=== PATIENT | male | born 1965 | race Caucasian/White ===

== ENCOUNTER 2018-06-20 08:54 | Emergency (ER) | payer OTHER ==
[~2018-06-20] VITALS: Ht 182.9 cm; Wt 97.5 kg
[~2018-06-20 08:54] MED LIST: CALCIUM600 M2 PO; CYCLOBENZAPRINE10 M1 PO; DEXILANT60 M1 PO; FLAX SEED OIL1000 M2 PO; FLUOXETINE HCL20 M2 PO; GLUCOSAMINE1000 MG PO; HYDROXYZINE HCL25 M2 PO; LORAZEPAM1 M1 PO; LOTEMAX5 ML OPH; NAPROSYN500 M1 PO; VITAMIN D2000 UNIT PO
[2018-06-20 08:58] VITALS: BP 141/84
--- NOTE | 2018-06-20 09:32 | ED NECK/BACK PAIN COMPLAINT ---
History of Present Illness General Chief Complaint: Neck/Upper Back Pain/Injury Stated Complaint: NECK PAIN/CHRONIC Source: patient Exam Limitations: no limitations Vital Signs & Intake/Output Vital Signs & Intake/Output Vital Signs Date Time Temp Pulse Resp B/P B/P Pulse O2 O2 Flow FiO2 Mean Ox Delivery Rate 06/20 0858 96.4 77 22 141/84 100 Room Air Allergies Coded Allergies: No Known Allergies (06/20/18) Reconcile Medications Calcium Carbonate (Calcium) (Unknown Strength) TABLET (Unknown Dose) PO DAILY SUPPLEMENT (Reported) Cholecalciferol (Vitamin D3) (Vitamin D) (Unknown Strength) CAPSULE (Unknown Dose) PO DAILY SUPPLEMENT (Reported) Cyclobenzaprine HCl 10 MG TABLET 1 TAB PO Q8P PAIN OR SPASM Dexlansoprazole (Dexilant) 60 MG CAP.BP 1 CAP PO EOD GI (Reported) Flaxseed Oil (Flax Seed Oil) (Unknown Strength) CAPSULE 2 CAP PO DAILY SUPPLEMENT (Reported) Fluoxetine HCl 20 MG CAPSULE 2 CAP PO DAILY MENTAL HEALTH (Reported) Glucosamine Sulfate 2KCL (Glucosamine) (Unknown Strength) TABLET (Unknown Dose ) PO DAILY SUPPLEMENT (Reported) Hydroxyzine Hydrochloride (Atarax) 25 MG TABLET 1 TAB PO QPM SLEEP/ALLERGIES (Reported) Lorazepam 1 MG TABLET 2 TAB PO QPM SLEEP (Reported) Lorazepam 1 MG TABLET 1 TAB PO QAM ANXIETY (Reported) Loteprednol Etabonate (Lotemax) 5 ML DROPS.SUSP 1 GTT OPH EOD BOTH EYES ( Reported) Naproxen (Naprosyn) 500 MG TABLET 1 TAB PO BID PAIN Triage Note: PT TO ED C/O CONTINUED CHRONIC NECK PAIN. PT GOES TO PAIN MANAGEMENT HERE, STATES PAIN IS WORSE. PT SAW DR RAE YESTERDAY AND WAS GIVEN RX FOR TRAMADOL, STATES TRAMADOL IS HELPING. HE NEEDS TO TAKE THE MEDS MORE THAN EVERY 8 HOURS PRESCRIBED. INSTRUCTED TO COME TO ED BY DR RAE. Triage Nurses Notes Reviewed? yes Onset: Abrupt Duration: ACUTE ON CHRONIC ISSUE Timing: recent history HPI: 53-year-old male comes into the emergency room for further evaluation of acute exacerbation of chronic neck pain. Patient reports that he has disc herniations in his neck. He has chronic pain issues with neck ad the right side of his arm. He had previous weakness in his right arm many years ago from initial disc herniations and those symptoms have been long resolved and his strength has been back. He has an appointment with a neurosurgeon tomorrow and is in pain management although he reports that he is on no narcotics. His doctor just prescribed tramadol yesterday. He currently finished a Medrol Dosepak and is now on another course of prednisone. He's had increased pain recently and his neck and right arm. He denies any new falls or trauma. He denies any other associated symptoms. He comes in for further evaluation. (Bhargav Vo) Past History Travel History Traveled to [place] past 21 day No Medical History Any Pertinent Medical History? see below for history Neurological: NONE EENT: NONE Cardiovascular: NONE Respiratory: NONE Gastrointestinal: NONE Hepatic: NONE Renal: NONE Musculoskeletal: CHRONIC NECK PAIN Psychiatric: anxiety, PROZAC Endocrine: NONE Blood Disorders: NONE Cancer(s): NONE Surgical History Surgical History: non-contributory Psychosocial History What is your primary language Luxembourgish Tobacco Use: Current Not Daily Daily Tobacco Use Amount/Type: =< 4 Cigarettes daily ETOH Use: denies use Illicit Drug Use: denies illicit drug use Family History Hx Contributory? No (Bhargav Vo) Review of Systems Review of Systems Constitutional: Reports: no symptoms. Eyes: Reports: no symptoms. Ears, Nose, Throat, Mouth: Reports: no symptoms. Respiratory: Reports: no symptoms. Cardiovascular: Reports: no symptoms. Gastrointestinal/Abdominal: Reports: no symptoms. Musculoskeletal: Reports: see HPI. Skin: Reports: no symptoms. Neurological/Psychological: Reports: no symptoms. All Other Systems: Reviewed and Negative (Bhargav Vo) Physical Exam Physical Exam General Appearance: well developed/nourished, mild distress Head: atraumatic Eyes: Bilateral: normal appearance. Ears, Nose, Throat, Mouth: hearing grossly normal, moist mucous membrane Neck: normal inspection, supple, limited range of motion, paraspinous muscle tender Respiratory: no respiratory distress Back: normal inspection Extremities: normal range of motion Neurologic/Psych: awake, alert, oriented x 3, normal mood/affect Skin: intact, normal color, warm/dry Comments: 5 out of 5 strength upper extremities, 5 out of 5 strength upper trauma's, gross sensation intact, full range of motion of right shoulder, Core Measures CVA/TIA Diagnosis: No (Bhargav Vo) Progress Differential Diagnosis: C spine injury, herniated disc, myofascial strain Plan of Care: Orders Procedure Date/time Status XRY-CERV SPINE 4 OR 5 VIEWS 06/20 932 Active Current Medications Sig/Nida Start time Last Medication Dose Stop Time Status Admin Oxycodone/ 2 TAB ONCE ONE 06/20 945 UNVr Acetaminophen 06/20 946 (Percocet) Diagnostic Imaging: Viewed by Me: Radiology Read. Discussed w/RAD: Radiology Read. Radiology Impression: PATIENT: MERY DOMINGUEZ PRESENT AGE: 53 PATIENT ACCOUNT NO: [id number] : 64 LOCATION: [facility] ORDERING PHYSICIAN: Bhargav BUSTAMANTE SERVICE DATE: 06/20/18 EXAM TYPE: RAD - XRY-CERV SPINE 4 OR 5 VIEWS EXAMINATION: XR CERVICAL SPINE CLINICAL INFORMATION: Neck pain. Chronic. COMPARISON: C-spine films dated 04/19/2016. TECHNIQUE: 6 views of the cervical spine. FINDINGS: There is a reversal of the normal cervical lordosis with focal kyphosis seen at the C5-6 level, slightly progressed when compared to the prior exam. There is associated moderate degenerative disc disease at the C5-6 and C6-7 levels with disc space narrowing and vertebral endplate spurring, similar to the previous study. Remainder of the disc space height well-maintained and no significant vertebral spondylosis seen in the upper cervical spine. The neural foramina bilaterally are widely patent. There is moderate facet arthropathy seen in the mid and lower cervical spine, similar to prior exam. No acute fracture or dislocation is seen. Prevertebral soft tissues are normal in thickness. Craniocervical junction and atlantoaxial articulations are intact. Osteopenia is suggested. IMPRESSION: 1. No acute fracture or dislocation. 2. Progressive cervical kyphosis, centered at the C5-6 level. 3. No significant change in moderate degenerative disc disease at C5-6 and C6-7. 4. No significant change in mid and lower cervical facet arthropathy. DICTATED BY: Vaishali Hutchinson MD DATE/TIME DICTATED:06/20/181026 WELLNESS PROGRAM MANAGER:TRAVIS DATE/TIME TRANSCRIBED:06/20/181026 CONFIDENTIAL, DO NOT COPY WITHOUT APPROPRIATE AUTHORIZATION. <Electronically signed in Other Vendor System> SIGNED BY: Vaishali Hutchinson MD 06/20/18 1037 (Bhargav Vo) Departure Departure Disposition: HOME OR SELF CARE Condition: Stable Clinical Impression Primary Impression: Chronic neck pain Referrals: Maxi YOUNGBLOOD,Benigno Rodriguez. (PCP/Family) Additional Instructions: follow-up tomorrow as already scheduled. Return if any other concerns worsening symptoms. Please go over all results of today's visit with your primary care doctor. Contact your primary care doctor to let them know you were here in the emergency room. There may be nonspecific findings which may not be related to your visit today here in the emergency room but may require further evaluation and chronic monitoring by your primary care doctor. If you had a laceration today the chance of foreign body always remains. You should follow-up with your primary care doctor for recheck in 3-5 days for a wound check. If you had an x-ray done there is a chance that a fracture could have been missed on initial read and you should follow-up with your primary care doctor for repeat x-rays if symptoms persist. If your blood pressure was elevated here in the emergency room please have rechecked by [facility] primary care doctor within the next 48. If you were prescribed a narcotic here in the emergency room or any type of controlled substances you're not allowed to drive while taking this medication or operate any type of heavy machinery. Narcotics can make you feel lightheaded dizziness nausea and can cause constipation. You may need to sampler pickup a stool softener. Thank you for choosing [facility] emergency room. Please return to the emergency room immediately if you have any other concerns worsening of symptoms. Departure Forms: Customer Survey General Discharge Information Comments 06/20/2018 10:49:28 AM Patient clinically looks well. Patient is in no apparent distress. Nontoxic- appearing. Pain is most consistent with chronic neck pain. No motor deficits. He has an appointment with neurosurgery and pain management tomorrow. Return if any other concerns. Understands and agrees with plan of care. (Bhargav Vo) PA/CHIEF PSYCHOLOGIST Co-Sign Statement Statement: ED Attending supervision documentation- [] I saw and evaluated the patient. I have also reviewed all the pertinent lab results and diagnostic results. I agree with the findings and the plan of care as documented in the PA's/CHIEF PSYCHOLOGIST's documentation. [X] I have reviewed the ED Record and agree with the PA's/CHIEF PSYCHOLOGIST's documentation. [] Additions or exceptions (if any) to the PAs/CHIEF PSYCHOLOGIST's note and plan are summarized below: [] (Kody YOUNGBLOOD,Albin Alonso)
--- NOTE | 2018-06-20 10:37 | RADIOLOGY REPORT ---
EXAMINATION: XR CERVICAL SPINE CLINICAL INFORMATION: Neck pain. Chronic. COMPARISON: C-spine films dated 04/19/2016. TECHNIQUE: 6 views of the cervical spine. FINDINGS: There is a reversal of the normal cervical lordosis with focal kyphosis seen at the C5-6 level, slightly progressed when compared to the prior exam. There is associated moderate degenerative disc disease at the C5-6 and C6-7 levels with disc space narrowing and vertebral endplate spurring, similar to the previous study. Remainder of the disc space height well-maintained and no significant vertebral spondylosis seen in the upper cervical spine. The neural foramina bilaterally are widely patent. There is moderate facet arthropathy seen in the mid and lower cervical spine, similar to prior exam. No acute fracture or dislocation is seen. Prevertebral soft tissues are normal in thickness. Craniocervical junction and atlantoaxial articulations are intact. Osteopenia is suggested. IMPRESSION: 1. No acute fracture or dislocation. 2. Progressive cervical kyphosis, centered at the C5-6 level. 3. No significant change in moderate degenerative disc disease at C5-6 and C6-7. 4. No significant change in mid and lower cervical facet arthropathy.
== END 2018-06-20 10:48 ==
LOC: ERH 08:54
DX: M54.2 Cervicalgia (principal); G89.29 Other chronic pain; F41.9 Anxiety disorder, unspecified; F17.210 Nicotine dependence, cigarettes, uncomplicated
CPT/HCPCS: 72050

== ENCOUNTER 2018-06-20 13:42 | Emergency (ER) | payer OTHER ==
[~2018-06-20] VITALS: Ht 182.9 cm; Wt 97.5 kg
[2018-06-20 13:51] VITALS: BP 134/88
--- NOTE | 2018-06-20 13:58 | ED GENERAL ADULT ---
History of Present Illness General Chief Complaint: General Adult Stated Complaint: RADIATING PAIN DOWN NECK, WAS SEEN THIS AM Source: patient Exam Limitations: no limitations Vital Signs & Intake/Output Vital Signs & Intake/Output Vital Signs Date Time Temp Pulse Resp B/P B/P Pulse O2 O2 Flow FiO2 Mean Ox Delivery Rate 06/20 1351 97.0 62 20 134/88 98 Room Air Allergies Coded Allergies: No Known Allergies (06/20/18) Reconcile Medications Calcium Carbonate (Calcium) (Unknown Strength) TABLET (Unknown Dose) PO DAILY SUPPLEMENT (Reported) Cholecalciferol (Vitamin D3) (Vitamin D) (Unknown Strength) CAPSULE (Unknown Dose) PO DAILY SUPPLEMENT (Reported) Cyclobenzaprine HCl 10 MG TABLET 1 TAB PO Q8P PAIN OR SPASM Dexlansoprazole (Dexilant) 60 MG CAP.BP 1 CAP PO EOD GI (Reported) Flaxseed Oil (Flax Seed Oil) (Unknown Strength) CAPSULE 2 CAP PO DAILY SUPPLEMENT (Reported) Fluoxetine HCl 20 MG CAPSULE 2 CAP PO DAILY MENTAL HEALTH (Reported) Glucosamine Sulfate 2KCL (Glucosamine) (Unknown Strength) TABLET (Unknown Dose ) PO DAILY SUPPLEMENT (Reported) Hydroxyzine Hydrochloride (Atarax) 25 MG TABLET 1 TAB PO QPM SLEEP/ALLERGIES (Reported) Lorazepam 1 MG TABLET 2 TAB PO QPM SLEEP (Reported) Lorazepam 1 MG TABLET 1 TAB PO QAM ANXIETY (Reported) Loteprednol Etabonate (Lotemax) 5 ML DROPS.SUSP 1 GTT OPH EOD BOTH EYES ( Reported) Naproxen (Naprosyn) 500 MG TABLET 1 TAB PO BID PAIN Triage Note: PT TO ED C/O CONTINUED NECK PAIN. PT SEEN FOR SAME THIS AM. Triage Nurses Notes Reviewed? yes Onset: Abrupt Duration: day(s):, constant Timing: recent history Injury Environment: home HPI: 53-year-old male that was seen here in our 2 ago comes into the emergency room with persistent right-sided neck pain. He also reports that he felt little bit dizzy. He reports that he did not eat food today or drink any water and feels dehydrated. The last time he drank was yesterday. When asked as to why he has not eaten or drank anything today he reports that he was here all morning and couldnt. He was on his way home being driven by a friend accompanying him when he started to feel dizzy so they turned around and came back to the ER. He denies any chest pain or shortness of breath or new symptoms. At the same pain he's been experiencing for days now. He has an appointment tomorrow with neurosurgeon at 1:00 in pain management doctor at 4 PM. (Bhargav Vo) Past History Travel History Traveled to [place] past 21 day No Medical History Any Pertinent Medical History? see below for history Neurological: NONE EENT: NONE Cardiovascular: NONE Respiratory: NONE Gastrointestinal: NONE Hepatic: NONE Renal: NONE Musculoskeletal: CHRONIC NECK PAIN Psychiatric: anxiety, PROZAC Endocrine: NONE Blood Disorders: NONE Cancer(s): NONE Surgical History Surgical History: non-contributory Psychosocial History What is your primary language Occitan Tobacco Use: Current Not Daily Daily Tobacco Use Amount/Type: =< 4 Cigarettes daily ETOH Use: denies use Illicit Drug Use: denies illicit drug use Family History Hx Contributory? No (Bhargav Vo) Review of Systems Review of Systems Constitutional: Reports: no symptoms. EENTM: Reports: no symptoms. Respiratory: Reports: no symptoms. Cardiovascular: Reports: no symptoms. GI: Reports: no symptoms. Genitourinary: Reports: no symptoms. Musculoskeletal: Reports: see HPI. Skin: Reports: no symptoms. Neurological/Psychological: Reports: no symptoms. Hematologic/Endocrine: Reports: no symptoms. Immunologic/Allergic: Reports: no symptoms. All Other Systems: Reviewed and Negative (Bhargav Vo) Physical Exam Physical Exam General Appearance: well developed/nourished, no apparent distress, alert, awake Head: atraumatic, normal appearance Eyes: Bilateral: normal appearance, EOMI. Ears, Nose, Throat: normal ENT inspection, hearing grossly normal Neck: normal inspection Respiratory: no respiratory distress Neurologic/Psych: awake, alert, oriented x 3 Skin: intact, normal color Core Measures ACS in differential dx? No CVA/TIA Diagnosis: No Sepsis Present: No Sepsis Focused Exam Completed? No (Bhargav Vo) Progress Differential Diagnoses I considered the following diagnoses in my evaluation of the patient: Disc herniation, degenerative disc disease, arthritis, drug-seeking, Plan of Care: Orders Procedure Date/time Status EKG 06/20 1356 Active Initial ED EKG: normal sinus rhythm, rate (59), Borderline T-wave abnormalities (Bhargav Vo) Departure Departure Disposition: HOME OR SELF CARE Condition: Stable Clinical Impression Primary Impression: Chronic neck pain Secondary Impressions: Cervical radiculopathy Referrals: Maxi YOUNGBLOOD,Benigno Reddy (PCP/Family) Additional Instructions: Continue to take the tramadol at home 2 tabs every 4-6 hours as needed for pain. Follow-up with doctors tomorrow as already scheduled. Return if any other concerns worsening symptoms. Please go over all results of today's visit with your primary care doctor. Contact your primary care doctor to let them know you were here in the emergency room. There may be nonspecific findings which may not be related to your visit today here in the emergency room but may require further evaluation and chronic monitoring by your primary care doctor. If you had a laceration today the chance of foreign body always remains. You should follow-up with your primary care doctor for recheck in 3-5 days for a wound check. If you had an x-ray done there is a chance that a fracture could have been missed on initial read and you should follow-up with your primary care doctor for repeat x-rays if symptoms persist. If your blood pressure was elevated here in the emergency room please have rechecked by [facility] primary care doctor within the next 48. If you were prescribed a narcotic here in the emergency room or any type of controlled substances you're not allowed to drive while taking this medication or operate any type of heavy machinery. Narcotics can make you feel lightheaded dizziness nausea and can cause constipation. You may need to draft roller picker a stool softener. Thank you for choosing [facility] emergency room. Please return to the emergency room immediately if you have any other concerns worsening of symptoms. Departure Forms: Customer Survey General Discharge Information Comments 06/20/2018 4:12:30 PM Patient was just seen and examined an hour or so ago. There is no acute findings at that time. He had no motor deficits. This has been an acute on chronic issue. He has an appointment tomorrow with neurosurgery and pain management. He has no complaints of chest pain shortness of breath. It is clearly a musculoskeletal issue. Case is discussed with Dr. Gates. He feels a little bit better but reports she still is having pain. Patient was told to use tramadol home. (Bhargav Vo) PA/SENIOR MEDIA BUYER Co-Sign Statement Statement: ED Attending supervision documentation- [] I saw and evaluated the patient. I have also reviewed all the pertinent lab results and diagnostic results. I agree with the findings and the plan of care as documented in the PA's/SENIOR MEDIA BUYER's documentation. [X] I have reviewed the ED Record and agree with the PA's/SENIOR MEDIA BUYER's documentation. [] Additions or exceptions (if any) to the PAs/SENIOR MEDIA BUYER's note and plan are summarized below: [] (Kody YOUNGBLOOD,Albin Alonso) Critical Care Note Critical Care Note Critical Care Time: non-applicable (Bhargav Vo)
== END 2018-06-20 16:09 ==
LOC: ERH 13:42
DX: M54.12 Radiculopathy, cervical region (principal); M54.2 Cervicalgia; G89.29 Other chronic pain; F41.9 Anxiety disorder, unspecified; F17.210 Nicotine dependence, cigarettes, uncomplicated
CPT/HCPCS: 93005; 93010; 96372; J1885

== ENCOUNTER 2018-06-26 09:31 | Inpatient (IN) | payer OTHER ==
[~2018-06-26] VITALS: Ht 182.9 cm; Wt 97.5 kg
[2018-06-26 11:22] LABS: ABSOLUTE BASOPHIL COUNT 0 /CUMM (0.0-0.2); ABSOLUTE EOSINOPHIL COUNT 0 /CUMM (0.0-0.7); ABSOLUTE GRANULOCYTE CT 10.1 /CUMM (1.4-6.5); ABSOLUTE LYMPH COUNT 1.7 /CUMM (1.2-3.4); ABSOLUTE MONOCYTE COUNT 0.7 /CUMM (0.10-0.60); BASOPHIL % 0.3 % (0.0-2.0); EOSINOPHIL % 0 % (0-5); GRANULOCYTE % 80.9 % (42.2-75.2); HEMATOCRIT 42.4 % (42-52); MEAN CORPUSCULAR HGB 30.3 PG (27.0-31.0); MEAN CORPUSCULAR VOLUME 89.3 FL (80.0-94.0); MEAN PLATELET VOLUME 7.9 FL (7.4-10.4); PLATELET COUNT 333 /CUMM (130-400); RBC DISTRIBUTION WIDTH 14.4 % (11.5-14.5); RED BLOOD CELL CT 4.75 /CUMM (4.70-6.10); WHITE BLOOD CELL COUNT 12.5 /CUMM (4.8-10.8)
--- NOTE | 2018-06-26 11:29 | ED GENERAL ADULT ---
History of Present Illness General Chief Complaint: General Adult Stated Complaint: SIB MD ESPINOSA FOR "ADMISSION PRE SURGERY [facility]" Source: patient Exam Limitations: no limitations Vital Signs & Intake/Output Vital Signs & Intake/Output Vital Signs Date Time Temp Pulse Resp B/P B/P Pulse O2 O2 Flow FiO2 Mean Ox Delivery Rate 06/26 1106 Room Air 06/26 0943 97.4 81 15 141/94 98 Room Air Room Air Allergies Coded Allergies: No Known Allergies (06/20/18) Reconcile Medications Calcium Carbonate (Calcium) (Unknown Strength) TABLET (Unknown Dose) PO DAILY SUPPLEMENT (Reported) Cholecalciferol (Vitamin D3) (Vitamin D) (Unknown Strength) CAPSULE (Unknown Dose) PO DAILY SUPPLEMENT (Reported) Cyclobenzaprine HCl 10 MG TABLET 1 TAB PO Q8P PAIN OR SPASM Dexlansoprazole (Dexilant) 60 MG CAP. 1 CAP PO EOD GI (Reported) Flaxseed Oil (Flax Seed Oil) (Unknown Strength) CAPSULE 2 CAP PO DAILY SUPPLEMENT (Reported) Fluoxetine HCl 20 MG CAPSULE 2 CAP PO DAILY MENTAL HEALTH (Reported) Glucosamine Sulfate 2KCL (Glucosamine) (Unknown Strength) TABLET (Unknown Dose ) PO DAILY SUPPLEMENT (Reported) Hydroxyzine Hydrochloride (Atarax) 25 MG TABLET 1 TAB PO QPM SLEEP/ALLERGIES (Reported) Lorazepam 1 MG TABLET 2 TAB PO QPM SLEEP (Reported) Lorazepam 1 MG TABLET 1 TAB PO QAM ANXIETY (Reported) Loteprednol Etabonate (Lotemax) 5 ML DROPS.SUSP 1 GTT OPH EOD BOTH EYES ( Reported) Naproxen (Naprosyn) 500 MG TABLET 1 TAB PO BID PAIN Triage Note: PT SENT TO ED BY DR. ESPINOSA FOR ADMISSION FOR SURGERY TOMORROW FOR NECK DISCECTOMY. 02/14 PAIN CURRENTLY. R ARM PAIN WELL R/T NECK INJURY. Triage Nurses Notes Reviewed? yes Onset: Gradual Duration: week(s): Timing: recent history Severity: moderate HPI: 53YO MALE presents to ED sent in by his surgeon, Dr. Garcia, for pre-op evaluation and admission. Patient states he is scheduled for cervical fusion tomorrow. Patient states that they attempted to directly admit him however there was not enough room so he came here first. Patient has been taking pain medication and steroids for his symptoms. He reports long-standing history of neck pain without recent injury. Pain radiates down right arm and is associated with burning and intermittent paresthesias. Patient reports associated weakness to right arm. Past History Travel History Traveled to [place] past 21 day No Medical History Any Pertinent Medical History? see below for history Neurological: NONE EENT: NONE Cardiovascular: NONE Respiratory: NONE Gastrointestinal: NONE Hepatic: NONE Renal: NONE Musculoskeletal: CHRONIC NECK PAIN Psychiatric: anxiety, PROZAC Endocrine: NONE Blood Disorders: NONE Cancer(s): NONE Surgical History Surgical History: non-contributory Psychosocial History What is your primary language Japanese Tobacco Use: Never used ETOH Use: denies use Illicit Drug Use: denies illicit drug use Family History Hx Contributory? No Review of Systems Review of Systems Constitutional: Reports: no symptoms. EENTM: Reports: no symptoms. Respiratory: Reports: no symptoms. Cardiovascular: Reports: no symptoms. GI: Reports: no symptoms. Genitourinary: Reports: no symptoms. Musculoskeletal: Reports: see HPI. Skin: Reports: no symptoms. Neurological/Psychological: Reports: see HPI. Hematologic/Endocrine: Reports: no symptoms. Immunologic/Allergic: Reports: no symptoms. All Other Systems: Reviewed and Negative Physical Exam Physical Exam General Appearance: well developed/nourished, no apparent distress, alert, awake Head: atraumatic, normal appearance Eyes: Bilateral: normal appearance. Ears, Nose, Throat: hearing grossly normal Neck: normal inspection, supple, full range of motion, no midline tenderness Respiratory: normal breath sounds, no respiratory distress, lungs clear Cardiovascular: regular rate/rhythm Gastrointestinal: normal bowel sounds, soft, non-tender Back: normal inspection, normal range of motion Extremities: normal inspection Neurologic/Psych: awake, alert, oriented x 3, strength 5/5 equal bilateral upper extremities Skin: intact, normal color, warm/dry Core Measures ACS in differential dx? No CVA/TIA Diagnosis: No Sepsis Present: No Sepsis Focused Exam Completed? No Progress Differential Diagnoses I considered the following diagnoses in my evaluation of the patient: [ degenerative disc disease, cervical radiculopathy, pre-operative clearance, anemia] Plan of Care: Orders Procedure Date/time Status Nothing by Mouth 06/27 B Active Regular Diet 06/26 L Complete Nothing by Mouth 06/26 D Active POTASSIUM 06/26 1800 Active Patient Data 06/26 1302 Active Misc Message 06/26 1240 Active ED Holding Orders 06/26 1240 Active Admit to inpatient 06/26 1240 Active Vital Signs 06/26 1240 Active Code Status 06/26 1240 Active XRY-CHEST XRAY, TWO VIEWS 06/26 1225 Active EKG 06/26 1114 Active URINALYSIS 06/26 0955 Complete TROPONIN LEVEL 06/26 0955 Complete PARTIAL THROMBOPLASTIN TIME 06/26 0955 Complete PROTHROMBIN TIME 06/26 09 Complete COMPREHENSIVE METABOLIC PANEL 06/26 955 Complete CBC WITHOUT DIFFERENTIAL 06/26 955 Complete TYPE & SCREEN (NOT X-MATCH) 06/26 955 Complete VTE Mechanical Prophylaxis 06/26 UNK Active Vital Signs 06/26 UNK Active Intake & Output 06/26 UNK Active Current Medications Sig/Nida Start time Last Medication Dose Stop Time Status Admin Fluoxetine HCl 40 MG DAILY 06/27 09 AC (Prozac) Lorazepam 1 MG DAILY 06/27 09 UNVr (Ativan) Pantoprazole Sodium 40 MG DAILY 06/27 09 UNVr (Protonix) Dexamethasone 4 MG Q6 06/26 1800 AC (Decadron) Acetaminophen 1,000 MG Q6P PRN 06/26 1315 AC (Ofirmev) N/A 1 UNIT (No Carrier) Cyclobenzaprine HCl 10 MG Q8P PRN 06/26 1315 AC (Flexeril 10MG Tab) Dextrose/Sodium 1,000 ML Q8H 06/26 1315 AC Chloride (D5-Normal Saline) Hydroxyzine HCl 25 MG AT BEDTIME NEED.. 06/26 1315 AC (Atarax) Lorazepam 2 MG .[AT BETIME] PRN 06/26 1315 UNVr (Ativan) Morphine Sulfate 2 MG Q4-6 PRN PRN 06/26 1315 UNVr (MORPHINE SULFATE) Laboratory Tests 06/26/18 1109: Urine Color YEL, Urine Clarity CLEAR, Urine pH 7.0, Ur Specific [place] 1.015, Urine Protein NEG, Urine Ketones NEG, Urine Nitrite NEG, Urine Bilirubin NEG, Urine Urobilinogen 0.2, Ur Leukocyte Esterase NEG, Ur Microscopic EXAM NOT REQUIRED, Urine Hemoglobin NEG, Urine Glucose NEG 06/26/18 1108: Anion Gap 5, Estimated GFR > 60, BUN/Creatinine Ratio 17.3, Glucose 133 H, Calcium 9.6, Total Bilirubin 0.2, AST 30, ALT 40, Alkaline Phosphatase 78, Troponin I < 0.01, Total Protein 8.6 H, Albumin 4.5, Globulin 4.1, Albumin/ Globulin Ratio 1.1, PT 10.7, INR 0.98, APTT 26, CBC w Diff NO MAN DIFF REQ, RBC 4.75, MCV 89.3, MCH 30.3, MCHC 34.0, RDW 14.4, MPV 7.9, Gran % 80.9 H, Lymphocytes % 13.5 L, Monocytes % 5.3, Eosinophils % 0, Basophils % 0.3, Absolute Granulocytes 10.1 H, Absolute Lymphocytes 1.7, Absolute Monocytes 0.7 H, Absolute Eosinophils 0, Absolute Basophils [address] Garcia regarding this patient. He recommends Decadron 6 mg now and then Decadron 4 mg every 6 hours. Also Nexium. She recommends spirometer and MRSA swab. She agrees with treating hyperkalemia with IV fluids and rechecking electrolytes lateral tonight. She requested I call the surgical PA to things ready for this patient's admission to surgical unit. Spoke with surgical PA Erica regarding this patient. Spoke with Dr. Narayanan who agrees with plan of care. Initial ED EKG: sinus rhythm @63bpm, nonspecific ST changes Prior EKG: unchanged (06/20/18) Departure Departure Disposition: STILL A PATIENT Condition: Stable Clinical Impression Primary Impression: Degenerative disc disease Qualifiers: Spinal region: unspecified cervical region Qualified Code: M50.30 - Other cervical disc degeneration, unspecified cervical region Secondary Impressions: Hyperkalemia Referrals: Maxi YOUNGBLOOD,Benigno Reddy (PCP/Family) Departure Forms: Customer Survey General Discharge Information Admission Note Spoke With: Karen Garcia MD Documentation of Exam: Documentation of any treatments & extenuating circumstances including Concerns Regarding Discharge (functional status, medication knowledge or non-compliance, living conditions, etc.) that warrant an admission rather than observation: [ Patient requires cervical fusion tomorrow with neurosurgeon, pre-op clearance, IV fluids to treat hyperkalemia with repeat electrolytes] Critical Care Note Critical Care Note Critical Care Time: non-applicable
[2018-06-26 11:33] LABS: PT 10.7 SEC (9.4-12.5); PTT 26 SEC (25-37)
--- NOTE | 2018-06-26 13:57 | History & Physical Pre-Op ---
General Information and HPI MD Statement: I have seen and personally examined MERY DOMINGUEZ and documented this H&P. The patient is a 53 year old M who presented with a patient stated chief complaint of [NECK PAIN WITH RIGHT SIDED RADICULOPATHY]. Source of Information: patient Exam Limitations: no limitations History of Present Illness: This 53-year-old male presents as a direct admission for progressive pain and weakness in his right arm and neck over the last few days. He admits to a history of chronic neck pain, with this current acute exacerbation only minimally responsive to a medrol dose pack followed by a subsequent prednisone taper. He reports a history of disc herniations in his neck, since 2010, but he has noticed right arm parethesias over the last 2 weeks with an acute worsening of his right arm weakness since yesterday. He denies any recent trauma or injury. He denies any other associated symptoms. He was instructed by for admission today, with plans for surgery tomorrow. Allergies/Medications Allergies: Coded Allergies: No Known Allergies (06/20/18) Home Med list Calcium Carbonate (Calcium) (Unknown Strength) TABLET (Unknown Dose) PO DAILY SUPPLEMENT (Reported) Cholecalciferol (Vitamin D3) (Vitamin D) (Unknown Strength) CAPSULE (Unknown Dose) PO DAILY SUPPLEMENT (Reported) Cyclobenzaprine HCl 10 MG TABLET 1 TAB PO Q8P PAIN OR SPASM Dexlansoprazole (Dexilant) 60 MG CAP.BP 1 CAP PO EOD GI (Reported) Flaxseed Oil (Flax Seed Oil) (Unknown Strength) CAPSULE 2 CAP PO DAILY SUPPLEMENT (Reported) Fluoxetine HCl 20 MG CAPSULE 2 CAP PO DAILY MENTAL HEALTH (Reported) Glucosamine Sulfate 2KCL (Glucosamine) (Unknown Strength) TABLET (Unknown Dose ) PO DAILY SUPPLEMENT (Reported) Hydroxyzine Hydrochloride (Atarax) 25 MG TABLET 1 TAB PO QPM SLEEP/ALLERGIES (Reported) Lorazepam 1 MG TABLET 2 TAB PO QPM SLEEP (Reported) Lorazepam 1 MG TABLET 1 TAB PO QAM ANXIETY (Reported) Loteprednol Etabonate (Lotemax) 5 ML DROPS.SUSP 1 GTT OPH EOD BOTH EYES ( Reported) Naproxen (Naprosyn) 500 MG TABLET 1 TAB PO BID PAIN Past History Medical History Neurological: NONE EENT: NONE Cardiovascular: NONE Respiratory: NONE Gastrointestinal: NONE Hepatic: NONE Renal: NONE Musculoskeletal: CHRONIC NECK PAIN Psychiatric: anxiety, PROZAC Endocrine: NONE Blood Disorders: NONE Cancer(s): NONE Surgical History Pertinent Surgical History: hernia repair-inguinal, tonsillectomy Past Family/Social History Family History Relations & Conditions if any FATHER, . Chronic renal disease Tuberculosis MOTHER, . FHx: lymphoma Psychosocial History Where Do You Live? Home Smoking Status: Former Smoker ETOH Use: denies use Illicit Drug Use: denies illicit drug use Employment History Employment: Employed Profession/Employer: multimedia project manager, banker Review of Systems Review of Systems: admits: acute on chronic neck pain, posterior. right arm paresthesias, right arm weakness denies: dizziness, shortness of breath, chest pains, dysuria, fevers/chills/ sweats Exam & Diagnostic Data Last 24 Hrs of Vital Signs/I&O Vital Signs Date Time Temp Pulse Resp B/P B/P Pulse O2 O2 Flow FiO2 Mean Ox Delivery Rate 06/26 1106 Room Air 06/26 0943 97.4 81 15 141/94 98 Room Air Room Air Intake & Output 06/26 1600 06/26 0800 06/26 0000 Intake Total 0 Output Total Balance 0 Intake, Oral 0 Patient 215 lb Weight Weight Reported by Patient Measurement Method Physical Exam: General - alert & oriented x 3. uncomfortable. no acute distress. Skin - warm, dry, and smooth. no rashes noted. Lungs - clear bilaterally. no w/r/r. Cardiac - s1s2. reg. Abdomen - soft. nontender. Extremities - warm bilaterally. no c/c/e. calves soft and nontender b/l. Neuro - speech smooth and coordinated. some numbness appreciated on the medial side of his right index finger, but otherwise equal. 5/5 retail cashier associate strength. 4/5 right sided triceps strength vs 5/5 left sided strength. radial pulses 2+ bilaterally. Last 24 Hrs of Labs/Trevin: Laboratory Tests 06/26/18 1109: Urine Color YEL, Urine Clarity CLEAR, Urine pH 7.0, Ur Specific [place] 1.015, Urine Protein NEG, Urine Ketones NEG, Urine Nitrite NEG, Urine Bilirubin NEG, Urine Urobilinogen 0.2, Ur Leukocyte Esterase NEG, Ur Microscopic EXAM NOT REQUIRED, Urine Hemoglobin NEG, Urine Glucose NEG 06/26/18 1108: Anion Gap 5, Estimated GFR > 60, BUN/Creatinine Ratio 17.3, Glucose 133 H, Calcium 9.6, Total Bilirubin 0.2, AST 30, ALT 40, Alkaline Phosphatase 78, Troponin I < 0.01, Total Protein 8.6 H, Albumin 4.5, Globulin 4.1, Albumin/ Globulin Ratio 1.1, PT 10.7, INR 0.98, APTT 26, CBC w Diff NO MAN DIFF REQ, RBC 4.75, MCV 89.3, MCH 30.3, MCHC 34.0, RDW 14.4, MPV 7.9, Gran % 80.9 H, Lymphocytes % 13.5 L, Monocytes % 5.3, Eosinophils % 0, Basophils % 0.3, Absolute Granulocytes 10.1 H, Absolute Lymphocytes 1.7, Absolute Monocytes 0.7 H, Absolute Eosinophils 0, Absolute Basophils 0 Diagnostic Data EKG Results reviewed, normal sinus rhythm, no acute changes CXR Results EXAMINATION: XR CHEST CLINICAL INFORMATION: Evaluate for cardiopulmonary pathology preop. COMPARISON: Chest CT September 2016. Chest x-ray September 2016. TECHNIQUE: 2 views of the chest were obtained. FINDINGS: Minimal blunting of the right costophrenic angle compatible pleural thickening or small effusion. Lungs otherwise clear. Chronic silhouette mediastinum pulmonary vascularity normal. Incidental note made of radiopaque tubing overlying the left hemithorax Bone and soft tissues unremarkable. IMPRESSION: No acute disease. Blunting of the right costophrenic angle compatible with pleural thickening or small effusion DICTATED BY: Pb Degroot MD DATE/TIME DICTATED:06/26/181350 INSURANCE ADMINISTRATIVE ASSISTANT:TRAVIS DATE/TIME TRANSCRIBED:06/26/181350 Other Results EXAMINATION: XR CERVICAL SPINE CLINICAL INFORMATION: Cervical spondylosis COMPARISON: 06/20/2018 TECHNIQUE: 4 views cervical spine including flexion and extension FINDINGS: Once again noted is reversal of the normal cervical lordosis and marked degenerative change present at C5-C6 and C6-C7 with disc space narrowing to a lesser extent at C4-C5. No soft tissue swelling is seen. There is good motion with flexion and extension with no instability or subluxation demonstrated. IMPRESSION: No interval change from yesterday. No subluxation with flexion and extension. DICTATED BY: Andrea Payton MD DATE/TIME DICTATED:06/22/181330 INSURANCE ADMINISTRATIVE ASSISTANT:STAHL DATE/TIME TRANSCRIBED:06/22/181330 Assessment/Plan Assessment/Plan: This 53 year old male with history of chronic neck pain presents with an acute exacerbation with right sided radiculitis and degenerative disc disease at levels C5-C6 and C6-C7, refractory to steroid tapers and pain medication trialed in outpatient setting admitting to 's service for surgery tomorrow for cervical HNP with right sided radiculitis continue decadron 4mg q6 hours continue daily PPI home meds ordered iv tylenol / morphine prn pain control (he would prefer vicodin over percocet post-operatively) pre-operative studies reviewed (EKG, CXR, labs) mild hyperkalemia noted, which will likely improve with iv fluids. will re-check serum k tonight ALPS - dvt ppx, with heparin sc to start post-operatively will d/w As Ranked By This Provider Problem List: 1. Degenerative disc disease 2. Hyperkalemia 3. Cervical radiculopathy Copies To: Maxi YOUNGBLOOD,Benigno Reddy
[2018-06-26 18:00] VITALS: BP 168/94
[2018-06-26 21:48] VITALS: BP 133/93
[2018-06-27 07:28] VITALS: BP 152/89
[2018-06-27 13:32] VITALS: BP 132/76
--- NOTE | 2018-06-27 16:57 | Operative Report ---
Operative/Inv Procedure Report Surgery Date: 06/27/18 Name of Procedure: Closed reduction of kyphotic deformity using cervical traction C5-6 and C7 anterior cervical discectomy and fusion Use of autograft Use of allograft Fluoroscopic guidance Placement of [place] titanium intervertebral biomechanical devices Placement of a Rajiv aviator anterior plating system Pre-Operative Diagnosis: Cervical spondylosis Post-Operative Diagnosis: Same Estimated Blood Loss: 50ml to 100ml Surgeon/Object Oriented Programmer: Albin Garcia MD,Karen Hernandez Anesthesia: general endotracheal tube Operative/Procedure Note Note: After the successful administration of general endotracheal anesthesia old lines to his mother's placement anesthesia team. The patient position supine with head gently extended he was placed in cervical traction with 10 pounds of traction. There is a transverse shoulder roll placed under his shoulders. We confirmed that he had a reduction of the kyphotic deformity under fluoroscopic guidance. We used the fluoroscope the planned skin incision in the left anterior neck. The patient was then prepped and draped in usual sterile fashion lidocaine with epinephrine was infiltrated in subcu tissues a #15 blade was used to incise left anterior neck. Dissection was carried down through the platysma with a Bovie cautery. We began sharp dissection medial to the carotid sheath lateral restricted esophagus. I did go down to the deep cervical fascia were divided to deep cervical fascia elevate the longus coli bilaterally after confirming the level by placing a spinal needle in the C5-6 disc space. Longus: With elevated and a soft retractor system was inserted and the longus coli. We used the [place] rongeur to remove any anterior osteophytes and save the bone for autograft. We then entered this patient #11 blade to perform partial discectomies encompass of curettes and pituitaries. We placed [place] pins the bodies of C5 and C7 provided gentle in-line distraction. We then for the remainder of discectomy using curettes and pituitaries to be cut down to the posterior osteophytes. These were drilled down with a high-speed drill. The PLL was elevated with an open curette and resected with a [place] punch. We should provide generous foraminotomies on the right-hand side at C6-C7. After satisfied with the bony and ligamentous decompression of thecal sac was pulsatile cartilage and bony end plates removed. We then trialed a 7 x 14 x 17 x 10 lordotic spacer at the C6-7 level. This was the appropriate size was prepacked morselized autograft and allograft in the form of the Yusuf's bone matrix putty. This was impacted motor status was stable. We then placed a 8 mm x 14 x 17 x 10 lordotic spacer at the C5-6 level. [place] pins were removed the patient was taken out of traction. We confirmed with a heart with excellent position fluoroscope. We then drilled down any remaining anterior osteophytes making the vertebral bodies flush. We then placed a 32 mm aviator plate secured in place with a holding pen ALT and then placed 14 mm screw and the right-sided C7. We saw the screw was slightly short on fluoroscopic guidance had used 16 mm screws for the remainder of the purchase. Holding pin was removed and the final screw was placed. The intrinsic locking because was locked with the laborer driver. The wounds and irrigated retractors were removed through separate stab incision a DANA drain was left subplatysmal and hemostasis obtained using bipolar cautery and FloSeal. Wounds and closed in layers using 3-0 Vicryl for platysma deep dermis. The skin was closed with a subsequent 4 oh. A dressing was applied. The patient taken to recovery in stable condition. Within the case all needle counts, sponges, and stools were correct.
--- NOTE | 2018-06-27 17:31 | Operative Report ---
Operative/Inv Procedure Report Surgery Date: 06/27/18 Name of Procedure: 1. Closed reduction of cervical kyphosis with in-line traction 2. C5/6, C6/7 ACDF with dieudonne tritanium cages, autograft, DBM, anterior aviator plate and screws 3. Intraoperative fluoroscopy Pre-Operative Diagnosis: cervical kyphosis, C5/6, C6/7 stenosis, DDD, C5 6 herniated Nicklas pulposus Post-Operative Diagnosis: same Estimated Blood Loss: 50ml to 100ml Surgeon/News Commentator: Jose YOUNGBLOOD,Albin Dykes MD Anesthesia: general endotracheal tube Monitors: neurophysiologic monitoring IV Fluids: 1800cc replaced wiith crystalloid Implants: dieudonne Urine Output: 300cc via ramirez Drains: med HV Specimens: C5/6, C6/7 disc material Complications: none Condition: stable Operative Indication: 53yo male with progressive and intractable neck and right cervical radiculopathy with progressive weakness and parasthesias despite multiple meds and ER visit as an outpatient who was admitted secondary to progressive neurologic deficit of right arm consistent with evolving right C6,7 nerve root dysfunction for high dose steroids, pain control and urgent surgical intervention. His imaging has shown progressive kyphosis, severe right C6/7 foraminal stenosis with severe C7 impingement as well as a progressive disc herniation at C5/6 with cord compression. The indications, risks, and benefits of surgery as well as the nonoperative alternatives were discussed in detail with the pt and he has elected to proceed. A written operative consent was signed. Operative/Procedure Note Note: Pt taken to the OR and after appropriate pt identification and surgical time out , the pt underwent smooth induction of GET without incident. With tube secured, neurosphysiologic monitoring leads, ramirez catheter and DVT prophylaxis placed. Baseline recordings obtained. Pt was positioned supine with neck gently extended on donut and shoulders retracted down. All pressure pts well padded and monitoring stable after positioning. Pt given preop antibiotics and decadron 10mg. C-arm brought in and correct levels localized. Patient was then placed in cervical traction and under fluoroscopic guidance sequential weights were added up to 10 pounds with excellent reduction of his cervical kyphosis. Neurophysiologic monitoring remained stable. The neck then widely prepped and draped steriley and a transverse linear incision marked on left side in pre- existing crease and infiltrated with local. C-arm sterilely draped into the field. Skin incision made with 10 blade knife. Platysma identfied, undermined and divided with bovey and subplatysma planes developed. Medial sternocleidomastoid muscle identified, fascia incised, and dissection carried out with digital and sharp dissection medial to sternocleidomastoid and lateral to trachea and esophagus down to pervertebral fascia. Carotid sheath identified and protected laterally under handheld retracter. Prevertebral fascia reflected with a peanut and operative disc spaces localized with the c-arm and marked with bovey. Annulotomy made at both C5/6 and C6/7with 15 blade and superficial discectomy done with currettes and pituitary rongeurs. Significant anterior osteophytes were resected with a Leksell rongeur and further contoured with the Trixieas Tomas. All bone was saved and passed off to the back table for arthrodesis. Kaspar retractors were placed in the C5 and C7 vertebral bodies and further gentle distraction placed across the interspaces. Discectomy was completed down to posterior longitudinal ligament which was elevated and sequentially resected at both levels. End plate osteophytes at canal thinned with drill and resected with 1 and 2mm kerrison punches and bone saved for fusion and an excellent decompression of dura and exiting roots accomplished at both levels. At C6 7, we paid particular attention to the right side which was symptomatic. Endplate osteophytes were drilled and further resected with a Kerrison to the proximal foramen where we encountered typical fat covering the exiting right C7 root. CSF pulsations were noted at both levels. Endplates at both levels were contoured and prepared for arthrodesis and all cartilaginous tissue removed. After appropriate trials, a 7mm x14x17 Wayne 10 hyperlordotic titanium cage was filled with autograft from osteophytectomy and DBM and gently tamped into C6 /7and a second 10 hyperlordotic titanium [id number] cage similarly into C5/6 and cages countersunk by 1-2mm under direct and fluroscopic guidance and position of the cages confirmed and noted to be excellent. Kaspar retracters and traction was removed and cages compressed between verterbral bodies. The ventral aspect of vertebral bodies then further contoured with drill to facilitate the anterior plate placement. A 32mm 6 hole Wayne aviator plate was selected, gently lordosis, and provisionally placed. Its position was confirmed and then afixed to vertebral bodies with a series of 2 screws into each of C5, C6, and C7. Each screw placed by piercing the bone with awl and placing self drilling self tapping screws with trajectory slightly medial. Once all screws in position, they were confirmed with C-arm and then finally tightened deploying the locking mechanism at each location. Final AP and lateral xrays obtained and saved. Monitoring was stable and wound closure started. Wound was copiously irrigated. Meticulous hemostasis obtained. A med HV was placed into the wound and secured to skin with 2-0 nylong suture. The platysma reapproximated with 3-0 vicryl suture. SKin closed in layers with 3-0 vicryl in dermis and 4-0 vicryl subcuticular to close skin. Wound was cleaned and dried and sterile occlusive dressing placed. Pt placed in soft collar, awakened, extubated and taken to PACU stable. Neurophysioloic monitoring stable. All sponge, needle and instrument counts correct X3 at completion of the case. Discharge Disposition: PACU
[2018-06-27 18:30] VITALS: BP 132/68
[2018-06-27 20:30] VITALS: BP 154/103
--- NOTE | 2018-06-27 22:28 | PN- Neurosurgical ---
Subjective Subjective: Patient complains of stiffness in the neck, mild to moderate pain, no weakness no numbness, mild radicular pain into the left deltoid region. No other complaints. No difficulty speaking or swallowing. Objective Vital Signs and I&Os Vital Signs Date Time Temp Pulse Resp B/P B/P Pulse O2 O2 Flow FiO2 Mean Ox Delivery Rate 06/27 2030 97.6 67 19 154/103 100 Nasal 2.0L Cannula 06/27 1830 98.7 60 18 132/68 100 Nasal 2.0L Cannula 06/27 1332 98.9 18 18 132/76 95 Room Air Room Air 06/27 0728 97.8 54 17 152/89 100 Intake & Output 06/27 1600 06/27 0800 06/27 0000 06/26 1600 06/26 0800 06/26 0000 Intake Total 1000 1000 2450 0 Output Total 750 400 650 Balance 878 239 5374 0 Intake, IV 1000 1000 1750 Intake, Oral 0 0 700 0 Output, Urine 750 400 650 Patient 215 lb 215 lb Weight Weight Reported by Patient Measurement Method Physical Exam: Well-developed well-nourished no apparent distress. HEENT: Atraumatic, extraocular motion intact Neck: Supple, dressing clean dry and intact, soft cervical collar in place, minimal swelling of the neck. DANA drain in place with approximately 15 cc of bloody drainage Respiratory: No respiratory distress Extremities: No edema, no calf pain Neuro: Alert and oriented x3 Bilateral upper extremities and lower extremities are neurovascularly intact with sensation and motor grossly intact Psych: Mood affect normal, normal memory normal judgment. Skin: Warm and dry, no rash on exposed skin Assessment/Plan Assessment/Plan Postop day #0 status post closed reduction of cervical kyphosis with in-line traction and ACDF C5/6, C6/7 Soft cervical collar. DANA drain to self suction, record output. Out of bed, ambulate. Continue IV fluids overnight. Pain medication as needed. Decadron taper Regular diet Incentive spirometer. Antibiotics until drain removed Heparin subcu for DVT prophylaxis Core Measures Venous Thromboembolism VTE Risk Factors Age>40 No Mechanical VTE Prophylaxis d/t N/A MechProphylax Ordered No VTE Pharm Prophylaxis d/t NA PharmProphylax ordered
[2018-06-27 22:29] VITALS: BP 134/66
[2018-06-28 00:28] VITALS: BP 150/83
[2018-06-28 04:31] VITALS: BP 129/96; BP 133/71
--- NOTE | 2018-06-28 07:48 | PN- Neurosurgical ---
Subjective Subjective: Pt doing well. Reports right arm pain markedly improved, numbness and weakness better. Does note some discomfort in left shoulder since op with parasthesias intermittently in left 5th digit. Objective Vital Signs and I&Os Vital Signs Date Time Temp Pulse Resp B/P B/P Pulse O2 O2 Flow FiO2 Mean Ox Delivery Rate 06/28 0431 97.6 67 20 133/71 100 Nasal 2.0L Cannula 06/28 0028 98.8 71 20 150/83 100 Nasal 2.0L Cannula 06/28 0000 100 Nasal 2.0L Cannula 06/28 0000 100 Nasal 2.0L Cannula 06/27 2229 97.8 63 19 134/66 100 Nasal 2.0L Cannula 06/27 2030 97.6 67 19 154/103 100 Nasal 2.0L Cannula 06/27 1830 98.7 60 18 132/68 100 Nasal 2.0L Cannula 06/27 1332 98.9 18 18 132/76 95 Room Air Room Air Intake & Output 06/28 0800 06/28 0000 06/27 1600 06/27 0800 06/27 0000 06/26 1600 Intake Total 401 088 2006 1000 2450 0 Output Total 520 400 750 400 650 Balance 420 215 050 668 1509 0 Intake, IV 128 976 2952 1000 1750 Intake, Oral 240 240 0 0 700 0 Output, 20 Drainage Output, Urine 500 400 750 400 650 Patient 97.522 kg 97.522 kg Weight Weight Reported by Patient Measurement Method Physical Exam: Pt awake and alert oriented and appropriate incision is c,d,i flat with clean dressing DANA with 20cc last shift neuro exam is with normal motor and sensory bilat UE, LE with fully recovered deficit of right tricep voice clear, swallow intact and pt denies signif dysphagia this am voiding on own Current Medications: Current Medications Sig/Nida Start time Last Medication Dose Route Stop Time Status Admin Acetaminophen 650 MG Q4P PRN 06/27 1900 AC PO Acetaminophen 1,000 MG Q6P PRN 06/26 1315 AC N/A 1 UNIT IV Bisacodyl 5 MG ONE ONE 06/28 0745 UNVr PO 06/28 0746 Bisacodyl 10 MG DAILY NEEDED PRN 06/27 1900 AC AR Cefazolin Sodium 2 GM Q8H 06/27 2100 DC 06/28 N/A 1 UNIT IV 06/29 1329 0535 Cyclobenzaprine HCl 10 MG Q8P PRN 06/26 1315 AC 06/27 PO 1930 Dexamethasone 3 MG Q6 06/28 1200 CAN IV Dexamethasone 3 MG Q6H 06/28 0745 UNVr PO Dexamethasone 4 MG Q6 06/26 1800 DC 06/28 IV 0535 Dextrose/Sodium 1,000 ML Q8H 06/26 1315 DC 06/28 Chloride IV 0535 Diazepam 5 MG Q8P PRN 06/27 1900 AC 06/28 PO 0400 Docusate Sodium 200 MG BID 06/27 0900 AC 06/27 PO 2138 Docusate Sodium 200 MG DAILY NEEDED PRN 06/26 2000 DC 06/26 PO 2018 Fentanyl Citrate 0 .STK-MED ONE 06/27 1313 DC .ROUTE Fluoxetine HCl 40 MG DAILY 06/27 09 AC 06/27 PO 0811 Gabapentin 300 MG BID 06/28 09 AC PO Heparin Sodium 5,000 UNIT Q8 06/28 0600 AC 06/28 (Porcine) SC 0535 Hydrocodone Bitart/ 2 TAB Q4P PRN 06/27 190 AC 06/28 Acetaminophen PO 0035 Hydromorphone HCl 0 .STK-MED ONE 06/27 1741 DC .ROUTE Hydromorphone HCl 0 .STK-MED ONE 06/27 1315 DC .ROUTE Hydroxyzine HCl 50 MG AT BEDTIME NEED.. 06/26 1400 AC 06/26 PO 2018 Lorazepam 1 MG DAILY 06/27 0900 AC 06/27 PO 0811 Lorazepam 2 MG AT BEDTIME 06/26 2100 AC 06/27 PO 2137 Midazolam HCl 0 .STK-MED ONE 06/27 1313 DC .ROUTE Morphine Sulfate 2 MG Q4-6 PRN PRN 06/26 1315 AC IV Omeprazole 40 MG DAILY AC 06/28 0739 UNVr PO Ondansetron HCl 4 MG Q6P PRN 06/27 1900 AC IV Pantoprazole Sodium 40 MG DAILY 06/27 0900 DC 06/27 IV 0811 Patient Medication 1 ED ONE ONE 06/27 1415 DC 06/27 Teaching ED 06/27 1416 1536 Sodium Chloride 1,000 ML .Q10H 06/27 1915 DC 06/27 IV 06/28 1514 1931 Tramadol HCl 50 MG Q4-6 PRN PRN 06/26 1930 AC 06/27 PO 2149 Tramadol HCl 100 MG Q4-6 PRN PRN 06/26 1930 AC PO Trimethobenzamide HCl 200 MG Q6P PRN 06/27 1900 AC IM Results Last 48 Hours of Labs: Laboratory Tests 06/26 1109 Chemistry Potassium (3.5 - 5.1 mmol/L) 4.7 Urines Urine Color (YEL,AMB,STR) YEL Urine Clarity (CLEAR) CLEAR Urine pH (5.0 - 8.0) 7.0 Ur Specific [place] (1.001 - 1.035) 1.015 Urine Protein (NEG,<30 MG/DL) NEG Urine Ketones (NEG) NEG Urine Nitrite (NEG) NEG Urine Bilirubin (NEG) NEG Urine Urobilinogen (0.1 - 1.0 EU/dl) 0.2 Ur Leukocyte Esterase (NEG) NEG Ur Microscopic EXAM NOT REQUIRED Urine Hemoglobin (NEG) NEG Urine Glucose (N MG/DL) NEG 06/26 1108 Chemistry Sodium (137 - 145 mmol/L) 137 Potassium (3.5 - 5.1 mmol/L) 5.8 H Chloride (98 - 107 mmol/L) 100 Carbon Dioxide (22 - 30 mmol/L) 32 H Anion Gap (5 - 16) 5 BUN (9 - 20 mg/dL) 19 Creatinine (0.7 - 1.2 mg/dL) 1.1 Estimated GFR (>60 ml/min) > 60 BUN/Creatinine Ratio (7 - 25 %) 17.3 Glucose (65 - 99 mg/dL) 133 H Calcium (8.4 - 10.2 mg/dL) 9.6 Total Bilirubin (0.2 - 1.3 mg/dL) 0.2 AST (17 - 59 U/L) 30 ALT (21 - 72 U/L) 40 Alkaline Phosphatase (< 127 U/L) 78 Troponin I (<0.11 ng/ml) < 0.01 Total Protein (6.3 - 8.2 g/dL) 8.6 H Albumin (3.5 - 5.0 g/dL) 4.5 Globulin (1.9 - 4.2 gm/dL) 4.1 Albumin/Globulin Ratio (1.1 - 2.2 %) 1.1 Coagulation PT (9.4 - 12.5 SEC) 10.7 INR (0.90 - 1.17) 0.98 APTT (25 - 37 SEC) 26 Hematology CBC w Diff NO MAN DIFF REQ WBC (4.8 - 10.8 /CUMM) 12.5 H RBC (4.70 - 6.10 /CUMM) 4.75 Hgb (14.0 - 18.0 G/DL) 14.4 Hct (42 - 52 %) 42.4 MCV (80.0 - 94.0 FL) 89.3 MCH (27.0 - 31.0 PG) 30.3 MCHC (33.0 - 37.0 G/DL) 34.0 RDW (11.5 - 14.5 %) 14.4 Plt Count (130 - 400 /CUMM) 333 MPV (7.4 - 10.4 FL) 7.9 Gran % (42.2 - 75.2 %) 80.9 H Lymphocytes % (20.5 - 51.1 %) 13.5 L Monocytes % (1.7 - 9.3 %) 5.3 Eosinophils % (0 - 5 %) 0 Basophils % (0.0 - 2.0 %) 0.3 Absolute Granulocytes (1.4 - 6.5 /CUMM) 10.1 H Absolute Lymphocytes (1.2 - 3.4 /CUMM) 1.7 Absolute Monocytes (0.10 - 0.60 /CUMM) 0.7 H Absolute Eosinophils (0.0 - 0.7 /CUMM) 0 Absolute Basophils (0.0 - 0.2 /CUMM) 0 Assessment/Plan Assessment/Plan Pt POD1 s/p C5/6, C6/7 ACDF for progressive right arm pain and weakness now improved since OR. Neurologically stable. Left shoulder discomfort likely related to intraop positioning and neuro exam of UE is normal. Plan: -dc drain, dc abx -mech soft diet -oob -home this am with VNA -fu with me 2 wks -soft collar prn -no driving, no lift more than 5 lbs -decadron taper over 10 days -pain meds and muscle relaxer for dc Core Measures Venous Thromboembolism VTE Risk Factors Age>40 No Mechanical VTE Prophylaxis d/t N/A MechProphylax Ordered No VTE Pharm Prophylaxis d/t NA PharmProphylax ordered Attending MD Review Statement Attending Statement Attending MD Statement: examined this patient, discuss w/resident/PA/[employer], discussed w/nursing
[2018-06-28] MEDS ORDERED: VICODIN 5-3001 EACH PO (07:55)
[2018-06-28] MEDS ORDERED: GABAPENTIN300 M2 PO (07:55)
[2018-06-28] MEDS ORDERED: VALIUM5 M2 PO (07:55)
[2018-06-28] MEDS ORDERED: DEXAMETHASONE1 M1 PO ×2 (07:55→11:24)
--- NOTE | 2018-06-28 08:00 | Patient Discharge Instructions ---
Discharge Instructions General Discharge Information You were seen/treated for: cervical radiculitis You had these procedures: C5-6, C6-7 ACDF Watch for these problems: fever over 100.4 drainage from wound redness and swelling around wound increase in pain arm numbness chest pain or shortness of breath No bath, but you may shower: Yes Other wound care: keep wound clean and dry Special Instructions: NO driving while taking pain medication Diet Continue normal diet: Yes Activity Activity Self Limited: Yes Pounds, do NOT lift more than: 10 Acute Coronary Syndrome Inclusion Criteria At DC or during hospital stay patient has or had the following: ACS DIAGNOSIS No Discharge Core Measures Meds if any: Prescribed or Continued at Discharge Meds if any: NOT Prescribed or Continued at Discharge Congestive Heart Failure Inclusion Criteria At DC or during hospital stay patient has or had the following: CHF DIAGNOSIS No Discharge Core Measures Meds if any: Prescribed or Continued at Discharge Meds if any: NOT Prescribed or Continued at Discharge Cerebrovascular accident Inclusion Criteria At DC or during hospital stay patient has or had the following: CVA/TIA Diagnosis No Discharge Core Measures Meds if any: Prescribed or Continued at Discharge Meds if any: NOT Prescribed or Continued at Discharge Venous thromboembolism Inclusion Criteria VTE Diagnosis No VTE Type NONE VTE Confirmed by (Test) NONE Discharge Core Measures - Per Current guidelines, there needs to be overlap - treatment for the first 5 days of Warfarin therapy. - If discharged on Warfarin prior to 5 days of - overlap therapy, the patient will need to be - assessed for post discharge needs including - *Post discharge parental anticoagulation - *Warfarin and/or parental anticoagulation education - *Follow up date to check INR post discharge At least 5 days overlap therapy as Inpatient No Meds if any: Prescribed or Continued at Discharge Note: Overlap Therapy is Warfarin and Anticoagulant Meds if any: NOT Prescribed or Continued at Discharge
--- NOTE | 2018-06-28 08:03 | Surg Short-stay <48hrs Dis Sum ---
Visit Information Visit Dates Admission Date: 06/26/18 Discharge Date: 06/28/18 Surgical Short Stay DC Summary Admission Diagnosis: Right arm cervical radiculitis Final Diagnosis: same Procedure(s): C5-6, C6-7 ACDF Summary/Significant Findings: pre-operatively pt was started on a decadron taper. Pt tolerated procedure well, POst-op he was tolerating his diet, void, pain was managed and he was ambulating. Pt was cleared for discharge to home Condition at Discharge: good Discharge Disposition: home health services Discharge instructions provided to patient/family: Yes Post discharge follow-up plan: FU with Dr Garcia in 1 week call sooner with questions or concerns
--- NOTE | 2018-06-28 08:15 | RADIOLOGY REPORT ---
EXAMINATION: Intraoperative fluoroscopy CLINICAL INFORMATION: Cervical spine fusion COMPARISON: Cervical spine radiographs 06/21/2018 TECHNIQUE: Intraoperative fluoroscopy was provided for use by Dr. Garcia. A total of 2 images were saved to PACS. A radiologist was not present during imaging. TOTAL FLUOROSCOPIC TIME: 0.16 minutes FINDINGS\E\IMPRESSION: Intraoperative fluoroscopy provided for use by Dr. Garcia. Please see operative note for detailed findings.
[2018-06-28 09:00] VITALS: BP 128/70
== END 2018-06-28 13:20 | disposition home health service (06) | DRG 473 ==
LOC: ERH 09:31 → ERHI 12:40 → 2NB 12:40 → ENRESERV 16:45 → ENTRNSPT 17:17 → EDTRNSPTSTS 17:22 → CMPTRNSPT 17:29 → 2NB 18:05 → ENTRNSPT 06-27 17:54 → EDTRNSPT 06-27 18:25 → EDTRNSPTSTS 06-27 18:25 → CMPTRNSPT 06-27 18:28 → ENPENDDIS 06-28 08:30 → ENTRNSPT 06-28 13:05 → EDTRNSPTSTS 06-28 13:15 → EDTRNSPT 06-28 13:15 → 2NB 06-28 13:20 → CMPTRNSPT 06-28 13:29
PROVIDERS: Physician Assistant Medical
PROC: 0RT30ZZ Resection of Cervical Vertebral Disc, Open Approach (ICD-10-PCS; principal; 2018-06-27)
PROC: 2W6 Placement, Anatomical Regions, Traction (ICD-10-PCS; principal; 2018-06-27)
PROC: 4A11X4G Monitoring of Peripheral Nervous Electrical Activity, Intraoperative, External Approach (ICD-10-PCS; principal; 2018-06-27)
PROC: 0RG20A0 Fusion of 2 or more Cervical Vertebral Joints with Interbody Fusion Device, Anterior Approach, Anterior Column, Open Approach (ICD-10-PCS; principal; 2018-06-27)
PROC: 0PS3XZZ Reposition Cervical Vertebra, External Approach (ICD-10-PCS; principal; 2018-06-27)
DX: M50.122 Cervical disc disorder at C5-C6 level with radiculopathy (principal); M48.02 Spinal stenosis, cervical region; M40.202 Unspecified kyphosis, cervical region; E87.5 Hyperkalemia
CPT/HCPCS: 2NBSP; 36592; 71046; 76000; 81003; 87086; 93005; 93010; C1713; J0131; J0690; J1100; J1644; J2405; J3490; J7042